=== PATIENT | female | born 2000 | race Caucasian/White ===

== ENCOUNTER 2024-05-27 17:24 | Inpatient (IN) | payer BC, SELFPAY ==
[2024-05-27] VITALS (7 sets, daily range): BP systolic 91–116; BP diastolic 68–78; BMI 22.0; BMI 21.1
--- NOTE | 2024-05-27 12:48 | ED.GENMED ---
History of Present Illness
General
Chief Complaint: Fatigue
Source: patient
Time Seen by Provider: 05/27/24 12:28
History of Present Illness
History of Present Illness:
24-year-old female presents to the emergency room complaining of feeling unwell for the past week. Patient's been experiencing chills, fatigue, poor appetite, nausea and vomiting. Patient returned from the [facility] just over a week ago.
She began having symptoms shortly after returning. Patient has a friend they were visiting in the [facility] who had been diagnosed with dengue fever a week or so prior to their arrival. Patient states she did have many mosquito bites.
Temperature was as high as 101. She has not had a fever for the past 2 days. She does note rash which she did take pictures of it is a macular type rash has been present diffusely and comes and goes.
Phy Exam
Physical Exam
Physical Exam:
General: Awake, Alert, Oriented X3. No acute distress.
Vitals: unremarkable
Head: Atraumatic
Eyes: Pupils equal, EOMI
Throat: Airway intact, no exudates
Neck: Trachea midline
Lungs: Clear and equal b/l
Heart: Regular rate, no murmurs
Abd: Soft, Nontender, No pulsatile mass
Neuro: Nonfocal
Skin: Warm, dry, scattered micropapular rash
Extremities: pulses equal b/l, no edema
Course
Orders/Labs/Results
Orders:
Orders
05/27/24 12:46
0.9% Sodium Chloride 1000 ml [Nss] 1,000 ml IV BOLUS
Ondansetron Injectable [Zofran] 4 mg IV NOW STA
Test Result ONCE
05/27/24 13:05
COVID-19 Antigen Urgent
Source: Nasal Swab
Complete Blood Count/With Diff Urgent
05/27/24 13:59
Comprehensive Metabolic Panel Routine
HCG, Serum Qualitative Screen Routine
05/27/24 14:04
Add On- LAB Urgent
Tests Added?: [facility] Dengue virus
05/27/24 14:39
Urinalysis Reflex To Culture Urgent
Date Specimen was Collected: 05/27/24
Time Specimen was Collected: 14:37
Urine Microscopic Reflex Cult Urgent
05/27/24 15:14
Acetaminophen [Tylenol] 1,000 mg PO NOW STA
Abnormal Lab Results
05/27/24 05/27/24 05/27/24
13:05 13:59 14:39
WBC 3.9 L 10^3/uL
(4.8-10.8)
MCH 31.7 H pg
(27.0-31.0)
Plt Count 87 L 10^3/uL
(130-400)
MPV 10.6 H fL
(7.4-10.4)
Calcium 8.3 L mg/dl
(8.4-10.2)
AST 243 H U/L
(14-36)
ALT 188 H U/L
(0-35)
Total Protein 6.1 L g/dl
(6.3-8.2)
Urine Ketones 2+ A
(Negative)
Ur Occult Blood Reflex Trace A
(Negative)
Urine Urobilinogen 2+ A
(Neg - 1+)
Urine Bacteria (Reflex) Few A
(Negative)
05/27/24 13:05
05/27/24 13:59
Vital Signs
Initial and Last Documented VS:
Initial Vital Signs
Temp Pulse Resp BP Pulse Ox
97.5 F 74 18 114/76 100
05/27/24 11:37 05/27/24 11:37 05/27/24 11:37 05/27/24 11:37 05/27/24 11:37
Last Documented Vital Signs
Temp Pulse Resp BP Pulse Ox
97.5 F 51 14 116/71 100
05/27/24 11:37 05/27/24 14:30 05/27/24 14:30 05/27/24 13:01 05/27/24 14:30
MDM/Problems Addressed
Differential Diagnosis Includes:
covid, dengue, other tropical virus like zika, chiccanunga
MDM/Problems Addressed:
Patient presents with fever, headache, nausea vomiting. Labs show a mildly depressed white blood cell count. LFTs are moderately elevated. Platelet count is low at 87. Discussed with infection control. Serum PCR testing dengue fever was sent.
Discussed with infectious disease specialist Dr. Tapia as well. Recommends hospitalization for monitoring of platelets, LFTs and development of hemorrhagic complications.
*Pulse Oximetry
Patient hypoxic: no
*Critical Care Note
Total Time (30-74mins, 75-104mins- exclusive of procedures): Not Applicable
ED Attending Note
-
Portions of this chart may have been created with voice recognition software.� Occasional wrong word or��sound alike� substitutions may have occurred due to the inherent limitations of voice recognition software.
Discharge Plan
Departure
Patient Disposition: Admit
Date of Disposition: 05/27/24
Time of Disposition: 15:16
Presentation/result/management discussed w/ accepting MD/DO: Hospitalist
Condition: Fair
Discharge Problem:
Fever, Thrombocytopenia
Prescriptions:
No Action
escitalopram oxalate 10 mg Tablet
10 mg PO DAILY
melatonin 10 mg Tablet
10 mg PO HSPRN PRN (Reason: sleep)
Medical Marijuana
1 dose PO HSPRN PRN (Reason: sleep)
dextroamphetamine-amphetamine [Adderall XR] 30 mg Capsule,Extended Release 24hr
30 mg PO DAILYPRN PRN (Reason: work)
Patient Comments:
05/27/24: last filled 01/02/24 for 30 tablets over 30 days
Referrals:
PRIVATE,PHYSICIAN [Family Provider] -
Interventions
Interventions:
*Risk Screen - Suicide Last Done: 05/27/24 11:37
*General Assessment Last Done: 05/27/24 11:37
*Neglect/Abuse Screening Last Done: 05/27/24 11:37
ED- Fall Risk Assessment Last Done: 05/27/24 13:00
*ED COVID-19 Vaccine History Last Done: 05/27/24 13:00
Discharge Date and Time
Print Language: MAORI
[2024-05-27] MEDS: NSS 1000 IV ×2 (13:02→18:49)
[2024-05-27] MEDS: ZOFRAN 4 MG IV ×2 (13:03→20:25)
[2024-05-27 13:18] LABS: Hematocrit 37.9 % (37.0-47.0); Hemoglobin 13.9 g/dL (12.0-16.0); Mean Corp Hgb Conc. 36.7 g/dL (33.0-37.0); Mean Corpuscular Hgb 31.7 pg (27.0-31.0); Mean Corpuscular Volume 86.5 fL (81.0-99.0); Mean Platelet Volume 10.6 fL (7.4-10.4); Platelet Count 87 10^3/uL (130-400); Red Blood Cell Count 4.38 10^6/uL (4.20-5.40); Red Cell Dist. Width 11.6 % (11.5-14.5); White Blood Cell Count 3.9 10^3/uL (4.8-10.8)
[2024-05-27 13:33] LABS: COVID-19 Antigen Negative (Negative)
[2024-05-27 13:37] LABS: % Basophils 0.5 % (0-2); % Eosinophils 0.3 % (0-6); % Immature Granulocytes 0.3 % (0-0.5); % Lymphocytes 39.6 % (20.5-51.1); % Monocytes 8.3 % (1.7-9.3); Absolute Lymphocytes 1.5 10^3/uL (1.2-3.4); Absolute Monocytes 0.3 10^3/uL (0.1-0.6); Nucleated Red Blood Cells % 0 %
[2024-05-27 14:37] LABS: HCG, Serum Qualitative Screen Negative
[2024-05-27 14:44] LABS: ALT (SGPT) 188 U/L (0-35); AST (SGOT) 243 U/L (14-36); Albumin 3.7 g/dl (3.5-5.0); Alkaline Phosphatase 75 U/L (38-126); Blood Urea Nitrogen 9 mg/dl (7-17); Calcium 8.3 mg/dl (8.4-10.2); Carbon Dioxide 27 mmol/L (22-30); Chloride 106 mmol/L (98-107); Estimated Creatinine Clearance 114 ml/min; Glucose 83 mg/dl (70-99); Potassium 4.3 mmol/L (3.5-5.1); Sodium 140 mmol/L (135-145); Total Bilirubin 0.4 mg/dl (0.2-1.3); Total Protein 6.1 g/dl (6.3-8.2); eGFR > 60.00
[2024-05-27 14:51] LABS: Urine Albumin Negative (Neg - Trace); Urine Bilirubin Negative (Negative); Urine Character Clear (Clear); Urine Color Yellow; Urine Glucose Negative (Negative); Urine Ketone 2+ (Negative); Urine Leukocyte Negative (Negative); Urine Nitrite Negative (Negative); Urine Occult Blood Trace (Negative); Urine Specific Gravity 1.005 (<1.030); Urine Urobilinogen 2+ (Neg - 1+)
[2024-05-27 15:11] LABS: Urine Bacteria Few (Negative); Urine Red Blood Cell 0-2 /HPF (0-2); Urine Squamous Cell 21-25 /LPF (Few); Urine White Cell 0-2 /HPF (0-5)
[2024-05-27] MEDS: TYLENOL 1000 MG PO (15:54)
--- NOTE | 2024-05-27 17:26 | HPS.HSE ---
Family Physician
-
Family Physician: PHYSICIAN PRIVATE
Chief Complaint
-
Fever and generalized fatigue.
History of Present Illness
Patient is a 24-year-old female with no medical history who presents to the emergency room with complaints of fever and generalized fatigue. Patient reports returning from [facility] close to 2 weeks ago. Shortly after likely 3 days post
return she developed fever, rash which was spreading on her chest and abdomen. She denies any shortness of breath, chest pain, denies any abdominal pain, hematochezia. She has mild nausea and loss of appetite. She denies any urinary complaints.
[place] friends was reported positive for Dengue fever. This the same concern patient presented for evaluation to ED.
Medical History
Past Medical History
Past Medical History: Reports None
Past Surgical History: Reports None
Social History
Tobacco: Non-smoker
Alcohol: None
Drug: Marijuana (Medicinal)
Personal: Single
Living: With Family
Family History
Family History: Not pertinent
Allergies / Home Medications
Allergies reflects when Allergies were last updated in [employer].
Home Medications with original date entered in [employer]
Allergy/Medication List:
Allergies
Allergy/AdvReac Type Severity Reaction Status Date / Time
No Known Allergies Allergy Unverified 05/27/24 11:37
Home Medications
Medical Marijuana 1 dose PO HSPRN PRN sleep 05/27/24
dextroamphetamine-amphetamine ER 30 mg 24hr capsule,extend release (Adderall XR) 30 mg PO DAILYPRN PRN work 05/27/24
escitalopram oxalate 10 mg tablet 10 mg PO DAILY 05/27/24
melatonin 10 mg tablet 10 mg PO HSPRN PRN sleep 05/27/24
Review of Systems
-
A 12 point ROS was completed and negative except as noted: Yes
Physical Exam
Vital Signs
Vital Signs
Temp Pulse Resp BP Pulse Ox
97.5 F 49 14 110/71 98
05/27/24 11:37 05/27/24 16:30 05/27/24 16:30 05/27/24 16:00 05/27/24 16:30
Physical Exam
General: Well Developed, Well Nourished and No Apparent Distress
HEENT: NormoCephalic, Moist mucous membranes and Atraumatic
Respiratory: Clear
Cardiac: S1/S2 and Regular Rhythm; No Murmur or Rub
GI: Soft, Non Tender, Non Distended and Normal Bowel Sounds; No Organomegaly
Rectal: Deferred by Provider
Musculoskeletal: No Clubbing, No Cyanosis and No Edema
Skin: Rash (Macular, fading at the abdomen)
Neuro: Nonfocal/grossly intact
Laboratory Results
-
05/27/24 13:05
05/27/24 13:59
Laboratory Results
Total Bilirubin 0.4 mg/dl (0.2-1.3) 05/27/24 13:59
AST 243 U/L (14-36) H 05/27/24 13:59
ALT 188 U/L (0-35) H 05/27/24 13:59
Alkaline Phosphatase 75 U/L (38-126) 05/27/24 13:59
Data Reviewed
-
Lab Data: Labs Reviewed by me
Impression/Plan
-
IMPRESSION:
Generalized fatigue, poor appetite.
Resolved fever.
Fading macular rash of the abdomen.
Thrombocytopenia
Mild leukopenia.
Mild elevation of transaminases
PLAN:
Presentation with above and recent (2 weeks prior to ED presentation) travel to [facility].
Reasonable concern for mosquito borne illness including Dengue fever, Chikununya, Zika virus.
If such, patient with no clinical evidence of severe disease including plasma leak or organ damage and likely in convalescent stage.
Will admit for monitoring
Follow CBC/CMP in the morning.
Gentle hydration.
Serology for above pathogens will be sent.
--- NOTE | 2024-05-27 18:30 | PTCARENOTE ---
Received patient from ED via stretcher. AAOx3, ambulated to bed. Assessed and oriented to room. Call stanton in close reach.
[2024-05-27] MEDS: TYLENOL 650 MG PO (21:57)
[2024-05-28 00:39] VITALS: BP 106/65
[2024-05-28] MEDS: NSS 1000 IV (05:23)
[2024-05-28 05:34] LABS: ALT (SGPT) 183 U/L (0-35); AST (SGOT) 183 U/L (14-36); Albumin 3.5 g/dl (3.5-5.0); Alkaline Phosphatase 73 U/L (38-126); Blood Urea Nitrogen 8 mg/dl (7-17); Calcium 8.3 mg/dl (8.4-10.2); Carbon Dioxide 25 mmol/L (22-30); Chloride 106 mmol/L (98-107); Estimated Creatinine Clearance 98 ml/min; Glucose 87 mg/dl (70-99); Potassium 3.9 mmol/L (3.5-5.1); Sodium 140 mmol/L (135-145); Total Bilirubin 0.4 mg/dl (0.2-1.3); Total Protein 5.9 g/dl (6.3-8.2); eGFR > 60.00
[2024-05-28 05:47] LABS: % Basophils 0.4 % (0-2); % Eosinophils 0.6 % (0-6); % Immature Granulocytes 0.4 % (0-0.5); % Lymphocytes 49.8 % (20.5-51.1); % Monocytes 9.9 % (1.7-9.3); % Neutrophils 38.9 % (42.2-75.2); Absolute Lymphocytes 2.3 10^3/uL (1.2-3.4); Absolute Monocytes 0.5 10^3/uL (0.1-0.6); Absolute Neutrophils 1.8 10^3/uL (1.4-6.5); Hematocrit 34.6 % (37.0-47.0); Hemoglobin 12.7 g/dL (12.0-16.0); Mean Corp Hgb Conc. 36.7 g/dL (33.0-37.0); Mean Corpuscular Volume 84.4 fL (81.0-99.0); Mean Platelet Volume 10.9 fL (7.4-10.4); Nucleated Red Blood Cells % 0 %; Platelet Count 102 10^3/uL (130-400); Red Cell Dist. Width 11.6 % (11.5-14.5); White Blood Cell Count 4.7 10^3/uL (4.8-10.8)
[2024-05-28 07:30] VITALS: BP 99/52
[2024-05-28] MEDS: LEXAPRO 10 MG PO (09:00)
[2024-05-28] MEDS: TYLENOL 650 MG PO (09:13)
[2024-05-28] MEDS: ZOFRAN 4 MG IV (11:28)
--- NOTE | 2024-05-28 13:03 | W.DS.TRANS ---
DC Summary - [employer]
-
Discharge Instructions:
Discharge Diagnosis/Procedures Viral illness
Diet Regular
Blood Work CBC, CMP in one week.
Instructions:
Stand-Alone Forms:
Changes to Home Medications: No
Discharge Medications:
DC Medications w/original date entered in [email or web address]
Medical Marijuana 1 dose PO HSPRN PRN sleep 05/27/24
escitalopram oxalate 10 mg tablet 10 mg PO DAILY 05/27/24
melatonin 10 mg tablet 10 mg PO HSPRN PRN sleep 05/27/24
ondansetron HCl 4 mg tablet 4 mg PO [id number] PRN nausea and vomiting 3 days #14 tabs 05/28/24
Home Medication Changes
Pending Results: No
--- NOTE | 2024-05-28 14:17 | CM ---
CM reviewed chart. Spoke with pt, explained role and discussed anticipated dc plan/options. Pt is from home w/boyfriend and lives in a 2story home w/iris. 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 No skilled needs noted at this time. PCP and
Pharmacy confirmed. Family to transport at dc.
CM will continue to follow to ensure a safe and timely discharge.
== END 2024-05-28 15:27 | disposition home or self-care (01) | DRG 866 ==
LOC: 4 EAST ACU 17:24
PROVIDERS: ADMITTING PHYSICIAN Internal Medicine; EMERGENCY PHYSICIAN Emergency Medicine
DX: B34.9 Viral infection, unspecified (principal); D69.6 Thrombocytopenia, unspecified; D72.819 Decreased white blood cell count, unspecified; R74.01 Elevation of levels of liver transaminase levels; R11.2 Nausea with vomiting, unspecified; R21 Rash and other nonspecific skin eruption; R50.9 Fever, unspecified; R53.83 Other fatigue; R63.0 Anorexia; Z68.22 Body mass index [BMI] 22.0-22.9, adult; W57.XXXA Bitten or stung by nonvenomous insect and other nonvenomous arthropods, initial encounter; Z79.899 Other long term (current) drug therapy
CPT/HCPCS: 80053; 81003; 81015; 84703; 85025; 87811; 96361; 96374; 99284